=== PATIENT | female | born 1960 ===

== ENCOUNTER 2025-03-02 14:29 | Outpatient (CLI) | payer OTHER | END 2025-03-02 14:30 | disposition home or self-care (01) | LOC: BICMAMMO 14:29 | PROVIDERS: ATTEND Physician Assistant | DX: Z12.31 Encounter for screening mammogram for malignant neoplasm of breast (principal); Z80.3 Family history of malignant neoplasm of breast; Z98.82 Breast implant status | CPT/HCPCS: 77063; 77067 ==